=== PATIENT | female | born 2005 | race Caucasian/White ===

== ENCOUNTER 2025-06-05 11:38 | Outpatient (CLI) | payer OTHER, SELFPAY | END 2025-06-05 11:39 | disposition home or self-care (01) | LOC: NFLDREF 06-08 11:17 | PROVIDERS: PCP Family Medicine; Referring Provider Family Medicine; Visit Provider Family Medicine | DX: L70.9 Acne, unspecified (principal); Z79.899 Other long term (current) drug therapy | CPT/HCPCS: 84132 ==

== ENCOUNTER 2025-07-14 09:54 | Outpatient (CLI) | payer OTHER, SELFPAY | END 2025-07-14 09:55 | disposition home or self-care (01) | PROVIDERS: PCP Family Medicine; Visit Provider Family Medicine | DX: R10.9 Unspecified abdominal pain (principal) | CPT/HCPCS: 80048; 82784; 84443; 85025; 86231; 86258; 86364 ==